=== PATIENT | male | born 1995 | race Two or more races ===

== ENCOUNTER 2018-12-28 12:43 | Emergency (ER) | payer MEDICAID ==
[~2018-12-28] VITALS: Ht 170.2 cm; Wt 104.3 kg
[2018-12-28] MEDS ORDERED: diphenhdrAMINE HCL 50 MG/1 ML VL ONE (13:19)
[2018-12-28] MEDS ORDERED: methylPREDNISolone SOD SUCC 125 MG/2 ML VL ONE (13:19)
[2018-12-28] MEDS ORDERED: methylPREDNISolone SOD SUCC 125 MG/2 ML VL IV ONE (13:30)
[2018-12-28] MEDS ORDERED: SODIUM CHLORIDE 0.9% 1,000 ML IV ONE ×2 (13:30→16:00)
[2018-12-28] MEDS ORDERED: diphenhdrAMINE HCL 50 MG/1 ML VL IV ONE (13:30)
[2018-12-28] MEDS ORDERED: METOPROLOL TARTRATE 50 MG TAB PO ONE (15:45)
[2018-12-28] MEDS ORDERED: EPINEPHrine HCL 1 MG/1 ML AMP SC ONE (16:00)
[2018-12-28 19:10] VITALS: BP 129/92
== END 2018-12-28 20:01 | disposition left against medical advice (07) ==
LOC: ER 12:43
DX: T78.40XA Allergy, unspecified, initial encounter (principal); H10.13 Acute atopic conjunctivitis, bilateral; T78.3XXA Angioneurotic edema, initial encounter; I10 Essential (primary) hypertension; X58.XXXA Exposure to other specified factors, initial encounter
CPT/HCPCS: 82962; 96372; 96374; 96375; 99283; J0171; J1200; J2930